=== PATIENT | female | born 1975 | race Caucasian/White ===

== ENCOUNTER → 2024-03-08 12:00 | Outpatient (REF) | payer BC, SELFPAY | LOC: DHSLP 12:00 | PROVIDERS: ATTENDING PHYSICIAN Internal Medicine; FAMILY PHYSICIAN Physician Assistant Medical | DX: G47.33 Obstructive sleep apnea (adult) (pediatric) (principal) | CPT/HCPCS: 95800 ==

== ENCOUNTER → 2024-03-09 10:03 | Outpatient (REF) | payer BC, SELFPAY | LOC: RAD 10:03 | PROVIDERS: ATTENDING PHYSICIAN Student in an Organized Health Care Education/Training Program; FAMILY PHYSICIAN Physician Assistant Medical | DX: M54.2 Cervicalgia (principal); M25.512 Pain in left shoulder | CPT/HCPCS: 72052; 73030 ==

== ENCOUNTER 2024-04-28 12:01 | Emergency (ER) | payer BC, SELFPAY ==
[2024-04-28 12:09] VITALS: BP 142/88
[2024-04-28 12:29] LABS: % Basophils 0.5 % (0-2); % Eosinophils 5.7 % (0-6); % Immature Granulocytes 0.3 % (0-0.5); % Lymphocytes 22.9 % (20.5-51.1); % Monocytes 6.6 % (1.7-9.3); Absolute Eosinophils 0.4 10^3/uL (0-0.7); Absolute Lymphocytes 1.8 10^3/uL (1.2-3.4); Absolute Monocytes 0.5 10^3/uL (0.1-0.6); Hemoglobin 14.6 g/dL (12.0-16.0); Mean Corp Hgb Conc. 34.8 g/dL (33.0-37.0); Mean Corpuscular Hgb 31.5 pg (27.0-31.0); Mean Corpuscular Volume 90.5 fL (81.0-99.0); Mean Platelet Volume 10.1 fL (7.4-10.4); Nucleated Red Blood Cells % 0 %; Platelet Count 220 10^3/uL (130-400); Red Blood Cell Count 4.64 10^6/uL (4.20-5.40); Red Cell Dist. Width 12.4 % (11.5-14.5); White Blood Cell Count 7.8 10^3/uL (4.8-10.8)
[2024-04-28 12:43] LABS: HCG, Serum Qualitative Screen Negative
--- NOTE | 2024-04-28 12:43 | ED.GENMED ---
History of Present Illness
General
Chief Complaint: Dizziness
Time Seen by Provider: 04/28/24 12:43
History of Present Illness
History of Present Illness:
HPI: Pt presents w/ dizziness. This has happened in past and seems to worsen w/ some head position changes. She has had similar episodes in past that were felt 'due to my thyroid'. No CP/no SOB. Worsening over the past few days. Sweats a lot w/
minimal exertion / states she is perimenopausal.
EXAM:
GENERAL: Appears somewhat weak
HEENT: No spont nystagmus; borderline(+) DixHallpike toward the right; normal TMs, no cerumen b/l
CARDIOVASCULAR: Regular rate / rhythm
PULMONARY: Clear lungs
ABDOMEN: Elevated BMI, soft abd
NEUROLOGIC: Normal finger to nose b/l
EXTREMITIES: No edema / no tenderness
PYSCHIATRIC: Somewhat of a flat affect
TIME OF INITIAL ENCOUNTER: 12:55pm
NUMBER AND COMPLEXITY OF PROBLEMS ADDRESSED AT THE ENCOUNTER
� Chronic conditions affecting care: Hypothyroidism; low iron; has had vertigo in past; hypersomnia on Nuvigil
� Acute Exacerbation and/or Progression of Chronic Illness: This is an acute but recurring problem
� Differential Diagnosis includes: Positional vertigo, anemia, worsening thyroid disease, dehydration, electrolyte abnormality
AMOUNT AND/OR COMPLEXITY OF DATA TO BE REVIEWED AND ANALYZED
� I performed an independent evaluation of and my interpretation is:
EKG: sinus 76, normal intervals
CT:
X-rays:
Laboratory Studies: CBC normal; hcg neg; TSH low but fT4 normal; otherwise chemistries unremarkable
Other:
� Review of other/old records: Head CT 2016 unremarkable; TFTs in 2020 normal
� Clinical information was obtained by an independent historian: None needed
� Prescriptions/Medications Considered but not given:
� Further testing considered but not performed:Considered meclizine, but she already has hypersomnia.
RISK OF COMPLICATIONS AND/OR MORBIDITY OR MORTALITY OF PATIENT MANAGEMENT
� Social determinants of health affecting care: Lives at home
� Discussion with other providers: None needed
� Escalation of care including admission/observation vs risk of discharge considered: Will give IVF. Borderline positive DixHallpike - suspect BPPV. Hgb normal. Pt has not had any changes to her medications. Well appearing on
reassessment at 1615.
Past History
Past History
ED Past Medical History: Asthma, Hypothyroidism, Psychiatric and Other
ED Past Surgical History: Cholecystectomy
Social History
Tobacco: Non-smoker
Alcohol: Occasional
Drug: None
Personal:
Living: with family
Employment: Employed
Family History
Family History: Other (strong family history of migraine headaches); Negative Early CAD
Phy Exam
Physical Exam
Physical Exam:
See HPI
Course
Orders/Labs/Results
Orders:
Orders
04/28/24 12:12
EKG [Electrocardiogram (*1)] Urgent
Reason for Study: Vertigo / Dizzy
EKG- Treatment ONCE
Test Result ONCE
04/28/24 12:17
CBC/With Diff [Complete Blood Count/With Diff] Urgent
Comprehensive Metabolic Panel Urgent
Free T4 Urgent
HCG, Serum Qualitative Screen Urgent
TSH Reflex To Free T4 Urgent
Comment: ADD ON
04/28/24 12:43
Add On- LAB Urgent
Tests Added?: tsh reflex fT4
04/28/24 12:57
0.9% Sodium Chloride 1000 ml [Nss] 1,000 ml IV BOLUS
Abnormal Lab Results
04/28/24
12:17
MCH 31.5 H pg
(27.0-31.0)
Glucose 108 H mg/dl
(70-99)
Alkaline Phosphatase 154 H U/L
(38-126)
TSH (Reflex) 0.14 L uIU/ml
(0.47-4.68)
04/28/24 12:17
04/28/24 12:17
Vital Signs
Initial and Last Documented VS:
Initial Vital Signs
Temp Pulse Resp BP Pulse Ox
99 F 85 16 142/88 98
04/28/24 12:09 04/28/24 12:09 04/28/24 12:09 04/28/24 12:09 04/28/24 12:09
Last Documented Vital Signs
Temp Pulse Resp BP Pulse Ox
99 F 73 16 119/79 95
04/28/24 12:09 04/28/24 14:15 04/28/24 14:15 04/28/24 14:00 04/28/24 14:15
*Critical Care Note
Total Time (30-74mins, 75-104mins- exclusive of procedures): Not Applicable
ED Attending Note
-
Portions of this chart may have been created with voice recognition software.� Occasional wrong word or��sound alike� substitutions may have occurred due to the inherent limitations of voice recognition software.
Discharge Plan
Departure
Prescriptions:
No Action
levothyroxine 112 MCG tablet
112 mcg PO DAILY
norethindrone-e.estradiol-iron 1 EACH tablet
1 tab PO DAILY
Vitamin D
2,000 units PO DAILY
Patient Comments:
pt tries to take daily but forgets sometimes
pantoprazole 40 MG tablet,delayed release (DR/EC)
40 mg PO DAILY
ibuprofen 600 MG tablet
600 mg PO Q6HPRN PRN (Reason: pain) Qty: 20 0RF
doxycycline hyclate 100 MG capsule
100 mg PO Q12 Qty: 14 0RF
ondansetron 4 MG tablet,disintegrating
4 mg PO BIDPRN PRN (Reason: nausea) Qty: 14 0RF
Referrals:
Maribel Stauffer PA [Family Provider] -
Interventions
Interventions:
*Risk Screen - Suicide Last Done: 04/28/24 12:09
*General Assessment Last Done: 04/28/24 12:09
*Neglect/Abuse Screening Last Done: 04/28/24 12:09
ED- Fall Risk Assessment Last Done: 04/28/24 12:49
*ED COVID-19 Vaccine History Last Done: 04/28/24 12:50
ED- Neurological Assessment Last Done: 04/28/24 12:53
ED- Cardiac Assessment Last Done: 04/28/24 12:52
Discharge Date and Time
Print Language: BELARUSIAN
[2024-04-28 12:49] VITALS: BP 136/83
[2024-04-28 12:55] LABS: ALT (SGPT) 26 U/L (0-35); AST (SGOT) 35 U/L (14-36); Albumin 4.2 g/dl (3.5-5.0); Alkaline Phosphatase 154 U/L (38-126); Blood Urea Nitrogen 11 mg/dl (7-17); Carbon Dioxide 22 mmol/L (22-30); Chloride 107 mmol/L (98-107); Glucose 108 mg/dl (70-99); Potassium 4.2 mmol/L (3.5-5.1); Sodium 138 mmol/L (135-145); Total Bilirubin 0.6 mg/dl (0.2-1.3); Total Protein 6.7 g/dl (6.3-8.2); eGFR > 60.00
[2024-04-28 13:00] VITALS: BP 136/80
[2024-04-28] MEDS: NSS 1000 IV (13:07)
[2024-04-28 14:00] VITALS: BP 119/79
[2024-04-28 15:45] LABS: TSH Reflex To Free T4 0.14 uIU/ml (0.47-4.68)
[2024-04-28 16:14] LABS: Free T4 1.07 ng/dl (0.78-2.19)
== END 2024-04-28 16:51 | disposition home or self-care (01) ==
LOC: EMR 12:01
PROVIDERS: Emergency Medicine; EMERGENCY PHYSICIAN Emergency Medicine; FAMILY PHYSICIAN Physician Assistant Medical
DX: R42 Dizziness and giddiness (principal)
CPT/HCPCS: 99284; 96360; 80053; 84439; 84443; 84703; 85025; 93005

== ENCOUNTER → 2024-06-06 06:47 | Outpatient (REF) | payer BC, SELFPAY | LOC: HWRAD 06:47 | PROVIDERS: ATTENDING PHYSICIAN Physician Assistant Medical | DX: R74.8 Abnormal levels of other serum enzymes (principal) | CPT/HCPCS: 76700 ==

== ENCOUNTER 2024-09-13 03:35 | Emergency (ER) | payer BC, SELFPAY ==
[2024-09-13 03:37] VITALS: BP 146/90
--- NOTE | 2024-09-13 05:07 | ED.GENMED ---
History of Present Illness
<ZEKE Mcgregor - Last Filed: 09/13/24 05:23>
General
Chief Complaint: Abdominal Symptoms
Source: patient
Exam Limitations: none
Time Seen by Provider: 09/13/24 04:45
Nursing documentation reviewed up to this point in time: agreed with
History of Present Illness
History of Present Illness:
Pt is a 48 yo F w/ PMH of ovarian cysts, cholecystectomy, HLD and hypothyroidism who presents with nausea and watery diarrhea x 14 hours. She states around 3pm yesterday she vomited 3x and then had diarrhea. She states the diarrhea has progressed to
watery and foul-smelling now. She is still having some associated nausea but thinks it is because she has not eaten. She has not attempted to eat/drink/medicate because of the nausea. She states she feels very weak and dehydrated. She admits to
diffuse abdominal pain that is constant but mild. She denies fever, chills, chest pain, dyspnea, hemoptysis, hematemesis, hematochezia, and changes in urination.
Past History
<ZEKE Mcgregor - Last Filed: 09/13/24 05:23>
Past History
ED Past Medical History: Asthma, Hypothyroidism, Psychiatric and Other
ED Past Surgical History: Cholecystectomy
Social History
Tobacco: Non-smoker
Alcohol: Occasional
Drug: None
Personal:
Living: with family
Employment: Employed
Family History
Family History: Other (strong family history of migraine headaches); Negative Early CAD
Review of Systems
<ZEKE Mcgregor - Last Filed: 09/13/24 05:23>
Review of Systems
Allergies reviewed?: Yes
Constitutional: Reports fatigue; Denies fever, night sweats or chills
Respiratory: Reports no symptoms
Cardiac: Reports no symptoms
ABD/GI: Reports abdominal pain, nausea, vomiting and diarrhea; Denies constipated or bloody stools
: Reports no symptoms
Musculoskeletal: Reports no symptoms
Phy Exam
<ZEKE Mcgregor - Last Filed: 09/13/24 05:23>
General Physical Exam
General Presentation: no apparent distress
General age: appears stated age
General Skin: warm and dry
General Habitus: normal
General Mental: alert
General Hydration: dry mucous membranes
Cardiovascular Exam
Cardiovascular Exam: regular rate/rhythm
Pulmonary Exam
Pulmonary Exam: lungs clear and no respiratory distress
Gastrointestinal Exam
Gastrointestinal Exam: normal bowel sounds, soft and non distended
Palpation: generalized: Minimal tenderness
Course
<ST BalbirAL - Last Filed: 09/13/24 05:23>
Orders/Labs/Results
Orders:
Orders
09/13/24 04:05
0.9% Sodium Chloride 1000 ml [Nss] 1,000 ml IV BOLUS
09/13/24 04:06
Test Result ONCE
09/13/24 05:26
Complete Blood Count/With Diff Urgent
Comprehensive Metabolic Panel Urgent
HCG, Serum Qualitative Screen Urgent
Lipase Urgent
09/13/24 06:25
CR Abdomen - 1 View Urgent
Comment:
Reason For Exam: diarrhea
09/13/24 06:27
STOOL [C difficile Antigen & Toxins] Urgent
[facility] Source: Feces/Stool
Specimen Description:
Date Specimen was Collected: 09/13/24
Time Specimen was Collected: 06:19
Stool Culture Urgent
[place] Source: Feces/Stool
Specimen Description:
Date Specimen was Collected: 09/13/24
Time Specimen was Collected: 06:19
Stool For WBC Urgent
[place] Source: Feces/Stool
Specimen Description:
Date Specimen was Collected: 09/13/24
Time Specimen was Collected: 06:20
Abnormal Lab Results
09/13/24
05:26
Absolute Neuts (auto) 8.5 H 10^3/uL
(1.4-6.5)
Absolute Lymphs (auto) 0.5 L 10^3/uL
(1.2-3.4)
Neutrophils % 91.0 H %
(42.2-75.2)
Lymphocytes % 4.8 L %
(20.5-51.1)
Potassium 3.4 L mmol/L
(3.5-5.1)
Carbon Dioxide 20 L mmol/L
(22-30)
Glucose 134 H mg/dl
(70-99)
AST 62 H U/L
(14-36)
ALT 64 H U/L
(0-35)
Alkaline Phosphatase 173 H U/L
(38-126)
09/13/24 05:26
09/13/24 05:26
Vital Signs
Initial and Last Documented VS:
Initial Vital Signs
Temp Pulse Resp BP Pulse Ox
98.3 F 126 20 146/90 100
09/13/24 03:37 09/13/24 03:37 09/13/24 03:37 09/13/24 03:37 09/13/24 03:37
Last Documented Vital Signs
Temp Pulse Resp BP Pulse Ox
98.3 F 126 18 125/79 94
09/13/24 03:37 09/13/24 03:37 09/13/24 05:37 09/13/24 07:00 09/13/24 07:00
[place];Edgardo Chawla, DO - Last Filed: 09/13/24 07:00>
Orders/Labs/Results
Orders:
Orders
09/13/24 04:05
0.9% Sodium Chloride 1000 ml [Nss] 1,000 ml IV BOLUS
09/13/24 04:06
Test Result ONCE
09/13/24 05:26
Complete Blood Count/With Diff Urgent
Comprehensive Metabolic Panel Urgent
HCG, Serum Qualitative Screen Urgent
Lipase Urgent
09/13/24 06:25
CR Abdomen - 1 View Urgent
Comment:
Reason For Exam: diarrhea
09/13/24 06:27
STOOL [C difficile Antigen & Toxins] Urgent
[facility] Source: Feces/Stool
Specimen Description:
Date Specimen was Collected: 09/13/24
Time Specimen was Collected: 06:19
Stool Culture Urgent
[place] Source: Feces/Stool
Specimen Description:
Date Specimen was Collected: 09/13/24
Time Specimen was Collected: 06:19
Stool For WBC Urgent
[place] Source: Feces/Stool
Specimen Description:
Date Specimen was Collected: 09/13/24
Time Specimen was Collected: 06:20
Abnormal Lab Results
09/13/24
05:26
Absolute Neuts (auto) 8.5 H 10^3/uL
(1.4-6.5)
Absolute Lymphs (auto) 0.5 L 10^3/uL
(1.2-3.4)
Neutrophils % 91.0 H %
(42.2-75.2)
Lymphocytes % 4.8 L %
(20.5-51.1)
Potassium 3.4 L mmol/L
(3.5-5.1)
Carbon Dioxide 20 L mmol/L
(22-30)
Glucose 134 H mg/dl
(70-99)
AST 62 H U/L
(14-36)
ALT 64 H U/L
(0-35)
Alkaline Phosphatase 173 H U/L
(38-126)
09/13/24 05:26
09/13/24 05:26
Vital Signs
Initial and Last Documented VS:
Initial Vital Signs
Temp Pulse Resp BP Pulse Ox
98.3 F 126 20 146/90 100
09/13/24 03:37 09/13/24 03:37 09/13/24 03:37 09/13/24 03:37 09/13/24 03:37
Last Documented Vital Signs
Temp Pulse Resp BP Pulse Ox
98.3 F 126 18 125/79 94
09/13/24 03:37 09/13/24 03:37 09/13/24 05:37 09/13/24 07:00 09/13/24 07:00
<ZEKE Mcgregor - Last Filed: 09/13/24 05:23>
MDM/Problems Addressed
Differential Diagnosis Includes:
gastroenteritis, C. diff colitis
<ZEKE Mcgregor - Last Filed: 09/13/24 05:23>
*Critical Care Note
Total Time (30-74mins, 75-104mins- exclusive of procedures): Not Applicable
<Edgardo Chawla DO - Last Filed: 09/13/24 07:00>
Update Note
Update Note:
48-year-old female presents the emergency department with liquid stools. She denies any blood. She took 4 Imodium A-D prior to arrival. She feels dehydrated. Denies any abdominal pain but states that when she has a watery bowel movement she does
have some spasm. Denies fever, chills, chest pain, or shortness of breath. Patient was on clindamycin several months ago. Patient was seen in conjunction with the PA student. I have reviewed and agree with the history and treatment plan
presented. On my independent physical exam, patient is awake, alert, and oriented x3 moderate acute distress. Heart is regular rate and rhythm. Lungs are clear to auscultation bilaterally without wheezes rales or rhonchi. Abdomen is soft with
hyperactive bowel sounds x 4 quadrants. Very minimal tenderness to palpation to deep and superficial palpation. No rigidity or guarding. Negative McBurney's point tenderness. Negative Mcpherson signs. Moves all 4 extremities. Skin is warm and
dry. Patient is mentating appropriately.
ED Attending Note
<ZEKE Mcgregor - Last Filed: 09/13/24 05:23>
-
Portions of this chart may have been created with voice recognition software.� Occasional wrong word or��sound alike� substitutions may have occurred due to the inherent limitations of voice recognition software.
Discharge Plan
Departure
Patient Disposition: Home (Routine Discharge)
Date of Disposition: 09/13/24
Time of Disposition: 08:35
Patient with high blood pressure during this ER visit?: No
Discharge Problem:
Diarrhea
Instructions: Diarrhea in teens and adults
Prescriptions:
No Action
levothyroxine 112 MCG tablet
112 mcg PO DAILY
venlafaxine 75 mg Tablet
75 mg PO DAILY
modafinil 200 mg Tablet
200 mg PO DAILY
Zyrtec
1 tab PO DAILY
Patient Comments:
doesn't know mg
fluticasone propionate [Flonase] 50 mcg/actuation [place],Suspension
2 spray INTRANASAL DAILY
Referrals:
Maribel Stauffer PA [Family Provider] -
Activity Restrictions/Additional Instructions:
You were seen in the Emergency Department today for diarrhea while you were here we performed blood work, which was reassuring. You will receive a call if your stool culture is positive. Please continue to stay hydrated with electrolyte solutions.
We would like for you to follow up with your primary care physician for further evaluation. If you experience fever, worsening of your symptoms, or develop any other new or concerning symptoms, please return to the Emergency Department immediately.
Please see the attached sheet for additional information.
Interventions
Interventions:
*Risk Screen - Suicide Last Done: 09/13/24 03:37
*Neglect/Abuse Screening Last Done: 09/13/24 03:37
ED- Fall Risk Assessment Last Done: 09/13/24 05:20
*ED COVID-19 Vaccine History Last Done: 09/13/24 05:20
IY-Banojm-Aqgvojlmtj Assessment Last Done: 09/13/24 05:20
ED- Cardiac Assessment Last Done: 09/13/24 05:20
ED- Neurological Assessment Last Done: 09/13/24 05:20
ED- Pulmonary Assessment Last Done: 09/13/24 05:20
Discharge Date and Time
Print Language: JAPANESE
[2024-09-13 05:29] VITALS: BMI 37.5
[2024-09-13] MEDS: NSS 1000 IV (05:35)
[2024-09-13 05:37] VITALS: BP 119/77
[2024-09-13 05:52] LABS: % Basophils 0.1 % (0-2); % Eosinophils 0.1 % (0-6); % Immature Granulocytes 0.4 % (0-0.5); % Lymphocytes 4.8 % (20.5-51.1); % Monocytes 3.6 % (1.7-9.3); Absolute Lymphocytes 0.5 10^3/uL (1.2-3.4); Absolute Monocytes 0.3 10^3/uL (0.1-0.6); Absolute Neutrophils 8.5 10^3/uL (1.4-6.5); Hemoglobin 15.1 g/dL (12.0-16.0); Mean Corp Hgb Conc. 34.3 g/dL (33.0-37.0); Mean Corpuscular Hgb 30.6 pg (27.0-31.0); Mean Corpuscular Volume 89.1 fL (81.0-99.0); Mean Platelet Volume 9.9 fL (7.4-10.4); Nucleated Red Blood Cells % 0 %; Platelet Count 201 10^3/uL (130-400); Red Blood Cell Count 4.94 10^6/uL (4.20-5.40); Red Cell Dist. Width 12.6 % (11.5-14.5); White Blood Cell Count 9.3 10^3/uL (4.8-10.8)
[2024-09-13 05:53] LABS: HCG, Serum Qualitative Screen Negative
[2024-09-13 06:00] VITALS: BP 121/80
[2024-09-13 06:00] LABS: ALT (SGPT) 64 U/L (0-35); AST (SGOT) 62 U/L (14-36); Albumin 4.1 g/dl (3.5-5.0); Alkaline Phosphatase 173 U/L (38-126); Blood Urea Nitrogen 14 mg/dl (7-17); Calcium 8.8 mg/dl (8.4-10.2); Carbon Dioxide 20 mmol/L (22-30); Chloride 102 mmol/L (98-107); Estimated Creatinine Clearance > 125 ml/min; Glucose 134 mg/dl (70-99); Lipase 33 U/L (23-300); Potassium 3.4 mmol/L (3.5-5.1); Sodium 136 mmol/L (135-145); Total Bilirubin 1.1 mg/dl (0.2-1.3); Total Protein 6.7 g/dl (6.3-8.2); eGFR > 60.00
[2024-09-13 07:00] VITALS: BP 125/79
[2024-09-13 08:42] VITALS: BP 141/85
== END 2024-09-13 08:48 | disposition home or self-care (01) ==
LOC: EMR 03:35
PROVIDERS: EMERGENCY PHYSICIAN Student in an Organized Health Care Education/Training Program; FAMILY PHYSICIAN Physician Assistant Medical
DX: R19.7 Diarrhea, unspecified (principal); E78.5 Hyperlipidemia, unspecified; E03.9 Hypothyroidism, unspecified
CPT/HCPCS: 99284; 96360; 74018; 80053; 83690; 84703; 85025; 87045; 87046; 87324; 87427; 87449; 89055

== ENCOUNTER 2024-12-04 16:53 | Emergency (ER) | payer BC, SELFPAY ==
[2024-12-04 17:06] VITALS: BP 124/103
[2024-12-04 17:20] VITALS: BMI 40.0
--- NOTE | 2024-12-04 17:57 | ED.GENMED ---
History of Present Illness
General
Chief Complaint: Head Injury
Time Seen by Provider: 12/04/24 17:36
History of Present Illness
History of Present Illness:
49-year-old female presents emergency department for evaluation of headache, fatigue, and lightheadedness for the past day. She struck her head on an open dryer door while at the laundromat yesterday. No LOC. Does not take blood thinners. No
nausea or vomiting today.
Past History
Past History
ED Past Medical History: Asthma, Hypothyroidism, Psychiatric and Other
ED Past Surgical History: Cholecystectomy
Social History
Tobacco: Non-smoker
Alcohol: Occasional
Drug: None
Personal:
Living: with family
Employment: Employed
Family History
Family History: Other (strong family history of migraine headaches); Negative Early CAD
Review of Systems
Review of Systems
Allergies reviewed?: Yes
All Other Systems: ROS reviewed and negative except as documented in HPI and ROS
Phy Exam
Physical Exam
Physical Exam:
GEN: Well appearing, NAD, WDWN
HEENT: No palpable cephalohematoma or deformity, oral mucosa moist, no scleral icterus, no nasal congestion
Cardiac: Regular rate
Lung: No respiratory distress, no tachypnea
MSK: No gross deformity or injuries
Skin: Good color, no pallor or jaundice, no rashes
Neuro: AO x3; CN II-XII grossly intact. BUE strength 5/5 in all [place], sensation intact and symmetric. BLE strength 5/5 in all [place], sensation intact and symmetric
Psych: Calm, cooperative
Course
Vital Signs
Initial and Last Documented VS:
Initial Vital Signs
Temp Pulse Resp BP Pulse Ox
98.7 F 94 16 124/103 96
12/04/24 17:06 12/04/24 17:06 12/04/24 17:06 12/04/24 17:06 12/04/24 17:06
Last Documented Vital Signs
Temp Pulse Resp BP Pulse Ox
98.7 F 94 16 124/103 96
12/04/24 17:06 12/04/24 17:06 12/04/24 17:06 12/04/24 17:06 12/04/24 17:06
MDM/Problems Addressed
MDM/Problems Addressed:
She is neurologically intact, I see no indication for CT of the head at this point. Likely mild concussion, discussed supportive care. She is also complaining of mild neck stiffness will prescribe muscle relaxant for as needed nighttime use
*Critical Care Note
Total Time (30-74mins, 75-104mins- exclusive of procedures): Not Applicable
ED Attending Note
-
Portions of this chart may have been created with voice recognition software.� Occasional wrong word or��sound alike� substitutions may have occurred due to the inherent limitations of voice recognition software.
Discharge Plan
Departure
Patient Disposition: Home (Routine Discharge)
Date of Disposition: 12/04/24
Time of Disposition: 17:59
Patient with high blood pressure during this ER visit?: No
Discharge Problem:
Concussion
Instructions: Concussion, Adult (DC)
Prescriptions:
New
methocarbamol 750 mg tablet
750 mg PO HS Qty: 12 0RF
No Action
levothyroxine 112 MCG tablet
112 mcg PO DAILY
venlafaxine 75 mg Tablet
75 mg PO DAILY
modafinil 200 mg Tablet
200 mg PO DAILY
Zyrtec
1 tab PO DAILY
Patient Comments:
doesn't know mg
fluticasone propionate [Flonase] 50 mcg/actuation [place],Suspension
2 spray INTRANASAL DAILY
Interventions
Interventions:
*Risk Screen - Suicide Last Done: 12/04/24 17:20
*General Assessment Last Done: 12/04/24 17:20
*Neglect/Abuse Screening Last Done: 12/04/24 17:20
ED- Fall Risk Assessment Last Done: 12/04/24 17:20
*ED COVID-19 Vaccine History Last Done: 12/04/24 17:20
*Nursing Disposition Last Done: 12/04/24 18:06
ED- Neurological Assessment Last Done: 12/04/24 17:57
ED-Skin Assessment Last Done: 12/04/24 17:57
Discharge Date and Time
Print Language: CITIZEN OF [place]
== END 2024-12-04 18:11 | disposition home or self-care (01) ==
LOC: EMR 16:53
PROVIDERS: EMERGENCY PHYSICIAN Emergency Medicine; FAMILY PHYSICIAN Physician Assistant Medical
DX: S06.0XAA Concussion with loss of consciousness status unknown, initial encounter (principal); W22.09XA Striking against other stationary object, initial encounter; Z90.49 Acquired absence of other specified parts of digestive tract; J45.909 Unspecified asthma, uncomplicated; E03.9 Hypothyroidism, unspecified
CPT/HCPCS: 99282

== ENCOUNTER → 2025-08-16 09:25 | Outpatient (REF) | payer BC, SELFPAY | LOC: HWRAD 09:25 | PROVIDERS: ATTENDING PHYSICIAN Otolaryngology; FAMILY PHYSICIAN Family Medicine | DX: R09.81 Nasal congestion (principal); J32.0 Chronic maxillary sinusitis; J34.2 Deviated nasal septum | CPT/HCPCS: 70486 ==